=== PATIENT | female | born 1955 | race Asian ===

== ENCOUNTER 2023-08-21 10:59 | Emergency (ER) | payer MEDICAID, SELFPAY ==
--- NOTE | ~2023-08-21 | XR_ITS ---
EXAMINATION: XR CHEST CLINICAL INFORMATION: Reason for Exam cough, fevers, 3 weeks COMPARISON: None TECHNIQUE: 2 views of the chest FINDINGS: Lines and tubes: None. Few patchy left basilar airspace opacities suggesting infection or aspiration, recommend follow-up radiographs to ensure resolution. Trace left pleural effusion. No pneumothorax. Normal cardiomediastinal silhouette. XR/XR chest 2V IMPRESSION: 1. Few patchy left basilar airspace opacities suggesting infection or aspiration, recommend follow-up radiographs to ensure resolution. 2. Trace left pleural effusion.
[2023-08-21 11:06] VITALS: BP 131/74; PULSE 81; RESP 16; TEMP 36.6; O2SAT 98; BMI 23.5
--- NOTE | 2023-08-21 11:34 | ED.URI ---
HPI - URI/Sore Throat General Chief Complaint: Upper Respiratory Symptoms Stated Complaint: sore throat cough nasal Time Seen by Provider: 08/21/23 11:11 Source: patient Mode of arrival: ambulatory Limitations: no limitations History of Present Illness HPI Narrative: patient is a 68-year-old female who presents to the emergency department for evaluation of productive cough with white mucus, and chills onset 2 weeks ago 08/07/2023. She does admit to going to a meeting with a lot of people surrounding her 2 days prior to her symptom onset. She denies any overt known sick contacts. She denies fevers, headache, neck pain, neck stiffness, chest pain, shortness of breath, nausea, vomiting, abdominal pain, numbness or tingling of her extremities. She denies any recent travel. Denies any pertinent past medical history. She has not taking any medications on a daily basis. Related Data Previous Rx's ?Medication ?Instructions ?Recorded amoxicillin 500 mg tablet 1,000 mg (2 x 500 mg) PO TID 5 08/21/23 days #30 tabs Allergies Allergy/AdvReac Type Severity Reaction Status Date / Time No Known Allergies Allergy Verified 08/21/23 11:07 Review of Systems Review of Systems: Yes all other systems are reviewed and are negative [facility] Past Medical History Attestation statement: The following information was validated with the patient. Source: old records reviewed Social History Social History Advance Directives: No Advance Directives Information Provided: No Do you have a plan to hurt others: No Plan Physical Exam Vital Signs: Vital Signs: Last Vital Signs Temp 97.8 F 08/21/23 11:06 Pulse 81 08/21/23 11:06 Resp 16 08/21/23 11:06 BP 131/74 08/21/23 11:06 Pulse Ox 98 08/21/23 11:06 O2 Del Method Room Air 08/21/23 11:06 BMI result Body Mass Index 23.5 Appearance: Alert.?Oriented to person, place and time. No acute distress.?Normal affect. Eyes: Pupils equal, round and reactive to light.? ENT: Pharynx normal.?? Neck: Normal inspection.? Neck supple.?? CVS: Heart sounds normal. Normal heart rate and rhythm.? Pulses normal.?? Respiratory: No respiratory distress.? Lung sounds clear Aside from loud pleural friction rub in the left lower lobe upon auscultation posteriorly Abdomen: Soft and non-tender. Normoactive bowel sounds. Skin: Skin warm and dry.? Normal skin color.? Extremities: No lower extremity edema.? No calf ttp? Neuro: Moves all extremities spontaneously. Sensation intact bilaterally. Ambulates with normal steady gait. Medical Decision Making Medical Decision Making [facility] Narrative: patient is a 68-year-old female with no reported past medical history presenting to emergency department for evaluation of productive cough congestion and chills for 2 weeks As per HPI. Overall she is well-appearing, nontoxic, afebrile. She is Nontoxic, well-appearing, without tachycardia tachypnea or hypoxia. She is speaking clear full sentences. Has no risk factors or clinical signs and symptoms of DVT /PE, Wells score is negative, less likely pulmonary embolism. No associated chest pain or atypical symptoms to suggest ACS. Viral testing obtained And is negative, CXR with evidence of left lower lobe pneumonia, will treat with course of antibiotics. And recommend outpatient follow-up with her primary care provider to assure resolution. Differential Diagnosis Differential Diagnoses: The differential diagnosis associated with the presentation includes ( see narrative above) Admission/Observation Consideration of admission/observation: Escalation of care including admission/observation considered ( see narrative above) Lab Data [facility] Lab Attestation statement: I reviewed the patient's lab results. ( see narrative above) Labs: Lab Results 08/21/23 Range/Units 11:12 Influenza Type A (PCR) NEGATIVE (Negative) Influenza Type B (PCR) NEGATIVE (Negative) RSV RNA Qual (PCR) NEGATIVE (Negative) SARS-CoV-2 RNA (RT-PCR) NEGATIVE (Negative) S. pyogenes GrpA KARTHIKEYAN Negative (Negative) Independent Interpretation I performed an independent interpretation of an: Plain X-Ray ( Left lower lobe pneumonia) Radiology Impression Discussion of test interpretation with radiology: I have reviewed the radiologist's reading. Radiologist Impression: XR/XR chest 2V IMPRESSION: 1. Few patchy left basilar airspace opacities suggesting infection or aspiration, recommend follow-up radiographs to ensure resolution. 2. Trace left pleural effusion. Prescription Management I considered prescription management with: Antibiotic Discharge Plan Discharge Clinical Impression: Community acquired pneumonia Patient Disposition: Home, Self-Care Instructions: Community Acquired Pneumonia (ED) Additional Instructions: your x-ray today shows pneumonia in your left lower lung. A prescription for antibiotic was sent to your pharmacy; amoxicillin which she will take 3 times a day for 5 days. Please contact your primary care provider's office first thing Wednesday morning to arrange for a follow-up visit. They may consider repeating your chest x-ray to ensure that the pneumonia has resolved once you are done with treatment. Please feel free to return back to emergency department any new or worsening symptoms or concerns. Prescriptions: New amoxicillin 500 mg tablet 1,000 mg PO TID 5 Days Qty: 30 0RF Referrals: Physician,None [Primary Care Provider] - Print Language: Prydeinig
[2023-08-21 11:41] LABS: IDNOW Serial# 08D9AD1C; Strep A Nucleic Acid Negative (Negative)
[2023-08-21 11:54] LABS: Influenza A PCR NEGATIVE (Negative); Influenza B PCR NEGATIVE (Negative); Resp Syncy Virus RNA Qual PCR NEGATIVE (Negative); SARS COV2 PCR INHOUSE NEGATIVE (Negative)
[2023-08-21 14:08] VITALS: BP 151/75; PULSE 72; RESP 16; TEMP 37.4; O2SAT 98
== END 2023-08-21 14:09 | disposition home or self-care (01) ==
PROVIDERS: Emergency Provider Student in an Organized Health Care Education/Training Program
DX: J18.9 Pneumonia, unspecified organism (principal)
CPT/HCPCS: 0241U; 71046; 87651; 99282; 99283

== ENCOUNTER 2023-08-29 13:52 | Emergency (ER) | payer MEDICAID, SELFPAY ==
--- NOTE | ~2023-08-29 | XR_ITS ---
EXAMINATION: XR CHEST CLINICAL INFORMATION: Cough. Recent pneumonia. COMPARISON: Previous chest x-ray 08/21/2023 TECHNIQUE: 2 views of the chest were obtained. FINDINGS: The cardiac and mediastinal contours are stable. The lungs are well-inflated. There is still a small infiltrate seen at the left lung base probably representing infiltrates similar to previous exam. There is Increasing subsegmental atelectasis at the right lung base. There is biapical pleural thickening. No pleural effusion or pneumothorax. Bony structures are unremarkable. XR/XR chest 2V IMPRESSION: Small left lower lobe infiltrate similar to previous exam. Increasing subsegmental atelectasis at the right lung base.
[2023-08-29 14:09] VITALS: BP 124/49; PULSE 87; RESP 14; TEMP 36.1; O2SAT 100; BMI 17.6
--- NOTE | 2023-08-29 14:09 | ED.GENADULT ---
HPI - General Adult General Chief complaint: General Medical Stated complaint: Cough Time Seen by Provider: 08/29/23 14:16 Source: patient, RN notes reviewed and old records reviewed Mode of arrival: ambulatory Limitations: no limitations History of Present Illness HPI narrative: 68 year old female with no significant pmhx presents to the ED today for evaluation of cough x14 days. She was [place] [facility] [place] and placed on a coarse of amoxicillin for diagnosis of left lobe pneumonia. She was told to follow up for repeat chest xray however does not have a PCP at present. She presents today with concerns of continued cough, requesting repeat chest xray to ensure improvement of pneumonia. She has not been taking anything for her cough at home. Admits cough is worse at night when she goes to lie down in bed. Denies recent sick contacts. Denies fevers, chills, sore throat, sputum production, sob, dyspnea, hemopytsis, calf pain, LE swelling. Denies current or previous hx of smoking tobacco. Denies recent travel or long car rides. Related Data Previous Rx's ?Medication ?Instructions ?Recorded amoxicillin 500 mg tablet 1,000 mg (2 x 500 mg) PO TID 5 08/21/23 days #30 tabs azithromycin 250 mg tablet See Rx Instructions PO .COMPLEX #6 08/29/23 (Zithromax Z-Nabor) tabs benzonatate 100 mg capsule 100 mg PO BID PRN cough #20 caps 08/29/23 prednisone 20 mg tablet 40 mg (2 x 20 mg) PO DAILY 5 days 08/29/23 #10 tabs Allergies Allergy/AdvReac Type Severity Reaction Status Date / Time No Known Allergies Allergy Verified 08/29/23 14:11 Review of Systems Review of Systems: Constitutional: No fever, chills, fatigue, night sweats, weight changes ENT/Mouth: No ear pain, hearing loss, nasal congestion, sinus pain, rhinorrhea, sore throat Eyes: No eye pain, swelling, redness, vision changes, discharge Cardio: No chest pain, palpitations, CUELLO, orthopnea, peripheral edema Pulm: No SOB, sputum, wheezing, dyspnea, hemoptysis, +cough GI: No nausea, vomiting, hematemesis, abdominal pain, diarrhea, constipation, hematochezia, melena : No irregular bleeding, dysuria, frequency, urgency, hesitancy, hematuria, flank pain, urinary flow changes, urinary incontinence or retention MSK: No back pain, neck pain, joint pain, myalgias Skin: No lesions, rashes Neuro: No weakness, numbness, paresthesias, LOC, dizziness, headache Psych: No anxiety/panic, depression, SI/HI, AH/VH All other systems reviewed and are negative. [facility] Past Medical History Attestation statement: The following information was validated with the patient. Source: old records reviewed and nursing notes reviewed Social History Social History Advance Directives: No Advance Directives Information Provided: Yes Do you have a plan to hurt others: No Plan Physical Exam ED Vital Signs: Vital Signs - 24 hr 08/29/23 16:59 08/29/23 18:07 08/29/23 19:56 Temperature 98.7 F 97.0 F 98.2 F Pulse Rate 74 80 80 Respiratory Rate 16 16 16 Blood Pressure 96/64 121/74 121/74 Pulse Oximetry 99 98 98 Oxygen Delivery Method Room Air Room Air Room Air BMI result Body Mass Index 17.6 Vital signs stable, afebrile. Const General: cooperative, healthy appearing, comfortable and no acute distress Orientation/consciousness: patient oriented x3 Limitations: no limitations [facility] Head: Yes normal to inspection, Yes No palpable skull fracture present, Yes normocephalic and Yes atraumatic Face and sinus: Yes normal facial exam and Yes sinuses nontender Mouth: Normal oral and palatal mucosa present Throat: Yes posterior oropharynx normal Eyes General: appearance normal, both eyes and all related structures Conjunctivae: conjunctivae normal Sclerae: sclerae normal Pupils: Equal, round and reactive pupils present Neck Neck: Yes normal visual inspection, Yes full ROM, Yes no lymphadenopathy, Yes no meningeal signs and Yes no JVD Resp Effort & Inspection: normal respiratory effort and able to speak in complete sentences Auscultation: clear to auscultation bilaterally Cardio Other: + no peripheral edema Jugular venous distension: no JVD Rate: regular rate Rhythm: regular rhythm Skin General skin exam: no rashes or lesions noted Neuro General: patient oriented x3, gait normal and no meningeal signs Cranial nerves: Yes Equal, round and reactive pupils present Extrem General: Yes no pedal edema and Yes no calf tenderness Course Course Course Narrative: This is an RME performed by Torin Ahumada CNP: Additional HPI, ROS, PE not included below will be deferred to primary provider. Patient is a 68-year-old female who presents emergency department for evaluation after recently being treated for pneumonia. She reports some improvement in her cough but is still present, she would like to have repeat x-ray to be sure that things are improving. Patient was made aware that there may still be findings on her chest x-ray at this time, despite improving condition, would typically not recommend follow-up imaging within 1 week. She feels very strongly for having repeat x-ray obtained, she does not have a primary care provider who she can follow-up with. Plan: XR Reevaluation(s) Reevaluation #1: 4234-- repeat chest xray showing unchanged lower left lobe infiltrate. given essentially unchanged findings and continued symptoms, will send patient zpak, prednisone, and tessalon perles for symptoms. additionally, given increasing atelectasis at right lung base, will provide patient with incentive spirometer. discussed all results along with disposition with patient. as she does not currently have a pcp, referral will be provided. i advised her to call tomorrow morning to establish care. Patient has remained stable throughout ED visit today. Discussed worrisome signs and symptoms and when to return to the ED. All questions answered at this time. Patient is agreeable with disposition and stable for discharge. Medical Decision Making Medical Decision Making MDM Narrative: 68 year old female with no significant pmhx presents to the ED today for evaluation of cough x14 days. vital signs stable. she is afebrile. she is nontoxic appearing and in nad. on exam, lungs are cta b/l. no crackles or rhonchi. rrr. no rashes. no jvd. no peripheral edema. no calf tenderness. Differential diagnosis includes continued pneumonia, bronchitis, viral syndrome. Unlikely PE, pleural effusion, acs, arrhythmia, chf. Repeat CXR ordered prior to my assumption of care. Plan for review and re-evaluation. Differential Diagnosis Differential Diagnoses: The differential diagnosis associated with the presentation includes as above. Admission/Observation not indicated. Independent Interpretation I performed an independent interpretation of an: Plain X-Ray Interpretation: CXR 08/29/23 showing small infiltrate to left lower lobe, agree with radiologist's interpretation. CXR 08/21/23 showing patchy opacities to left lower lobe, agree with radiologist's interpretation. Radiology Impression Discussion of test interpretation with radiology: I have reviewed the radiologist's reading. Radiologist Impression: EXAMINATION: XR CHEST CLINICAL INFORMATION: Cough. Recent pneumonia. COMPARISON: Previous chest x-ray 08/21/2023 TECHNIQUE: 2 views of the chest were obtained. FINDINGS: The cardiac and mediastinal contours are stable. The lungs are well-inflated. There is still a small infiltrate seen at the left lung base probably representing infiltrates similar to previous exam. There is Increasing subsegmental atelectasis at the right lung base. There is biapical pleural thickening. No pleural effusion or pneumothorax. Bony structures are unremarkable. XR/XR chest 2V IMPRESSION: Small left lower lobe infiltrate similar to previous exam. Increasing subsegmental atelectasis at the right lung base. EXAMINATION: XR CHEST CLINICAL INFORMATION: Reason for Exam cough, fevers, 3 weeks COMPARISON: None TECHNIQUE: 2 views of the chest FINDINGS: Lines and tubes: None. Few patchy left basilar airspace opacities suggesting infection or aspiration, recommend follow-up radiographs to ensure resolution. Trace left pleural effusion. No pneumothorax. Normal cardiomediastinal silhouette. XR/XR chest 2V IMPRESSION: 1. Few patchy left basilar airspace opacities suggesting infection or aspiration, recommend follow-up radiographs to ensure resolution. 2. Trace left pleural effusion. External Record Review External record reviewed: Inpatient record Tests considered The following testing was considered but not selected: I considered obtaining basic labs however lungs are CTA, no peripheral edema, no indicators of systemic infection or CHF, not warranted at this time. Prescription Management I considered prescription management with: Antibiotic (azithromycin) and Other (tessalon perles, prednisone) Social Determinants Patient?s care significantly limited by Social Determinants of Health including: Other Social Determinant of Health Critical Care Time Critical Care Time Critical Care Time: No Discharge Plan Discharge Clinical Impression: Community acquired pneumonia, Atelectasis Patient Disposition: Home, Self-Care Instructions: How to Use an Incentive Spirometer (ED), Community Acquired Pneumonia (ED), Pneumonia (ED), Atelectasis (ED) Additional Instructions: Your chest x-ray today read demonstrates a small area of pneumonia within your left lung. As discussed, it also shows atelectasis at the right lung base. You have been provided with incentive spirometer and educated on how to use this. Prednisone has been sent to your pharmacy for you to take over the next 5 days. Zpak is an antibiotic that you will take over the next 5 days as precribed. Tessalon perles have been sent to your pharmacy for cough. Please follow up with PCP in 2 weeks for repeat chest xray. You have been provided with a referral to a new PCP. You may call them to establish care. They will not call you. Return with new or worsening symptoms. In the case of an emergency call 911. Prescriptions: New azithromycin [Zithromax Z-Nabor] 250 mg tablet See Rx Instructions .ROUTE .COMPLEX Qty: 6 0RF Rx Instructions: For 250 mg dose pack: take 500 mg today (day 1), then 250 mg for 4 days (days 2-5) prednisone 20 mg tablet 40 mg PO DAILY 5 Days Qty: 10 0RF benzonatate 100 mg capsule 100 mg PO BID PRN (Reason: cough) Qty: 20 0RF No Action amoxicillin 500 mg tablet 1,000 mg PO TID 5 Days Qty: 30 0RF Referrals: [facility] [place] Family Medicine [Provider Group] [facility] [place] Primary [facility] [Provider Group] [facility] [place] Primary [facility] [Provider Group] Interventions: ED Discharge Assessment Last Done: 08/29/23 19:56 Discharge Date/Time: 08/29/23 19:57 Print Language: Argentine
[2023-08-29 16:59] VITALS: BP 96/64; PULSE 74; RESP 16; TEMP 37.1; O2SAT 99
[2023-08-29 18:07] VITALS: BP 121/74; PULSE 80; RESP 16; TEMP 36.1; O2SAT 98
[2023-08-29 19:56] VITALS: BP 121/74; PULSE 80; RESP 16; TEMP 36.8; O2SAT 98
== END 2023-08-29 19:57 | disposition home or self-care (01) ==
PROVIDERS: Emergency Provider Emergency Medicine Emergency Medical Services
DX: J18.9 Pneumonia, unspecified organism (principal); J98.11 Atelectasis
CPT/HCPCS: 71046; 94010; 99283

== ENCOUNTER 2023-09-11 12:51 | Emergency (ER) | payer MEDICAID, SELFPAY ==
--- NOTE | ~2023-09-11 | XR_ITS ---
EXAMINATION: XR CHEST CLINICAL INFORMATION: Chest pain. COMPARISON: Most recent chest radiograph dated 08/29/2023. TECHNIQUE: 2 views of the chest were obtained. FINDINGS: Linear scarring within the left lung base, unchanged. No new focal airspace consolidation. No pleural effusion or pneumothorax. Stable cardiomediastinal silhouette. XR/XR chest 2V IMPRESSION: No acute cardiopulmonary findings.
[2023-09-11 13:03] VITALS: BP 102/68; PULSE 81; RESP 19; TEMP 36.6; O2SAT 99; BMI 20.3
--- NOTE | 2023-09-11 13:04 | ED.URI ---
HPI - URI/Sore Throat General Chief Complaint: General Medical Stated Complaint: Follow up pneumonia Time Seen by Provider: 09/11/23 17:13 Source: patient Mode of arrival: ambulatory Limitations: no limitations History of Present Illness HPI Narrative: 68 yo female here after episode of chest pain yesterday which lasted several minutes then went away. Patient reports she was yelling at a co-worker when she started developed some sharp pain which lasted several minutes and then self-resolved. There was no associated diaphoresis, shortness of breath, vomiting. No chest pain since. Of note, patient was recently treated for community-acquired pneumonia and completed her course of antibiotics. She reports she had been feeling well until this episode of chest pain yesterday. She denies any leg swelling or leg pain. No recent travel. No exertional symptoms Related Data Previous Rx's ?Medication ?Instructions ?Recorded amoxicillin 500 mg tablet 1,000 mg (2 x 500 mg) PO TID 5 08/21/23 days #30 tabs azithromycin 250 mg tablet See Rx Instructions PO .COMPLEX #6 08/29/23 (Zithromax Z-Nabor) tabs benzonatate 100 mg capsule 100 mg PO BID PRN cough #20 caps 08/29/23 prednisone 20 mg tablet 40 mg (2 x 20 mg) PO DAILY 5 days 08/29/23 #10 tabs Allergies Allergy/AdvReac Type Severity Reaction Status Date / Time No Known Allergies Allergy Verified 09/11/23 13:07 Review of Systems Review of Systems: Yes all other systems are reviewed and are negative Constitutional: Constitutional: Reports no additional constitutional complaints, Denies body ache(s), Denies chills, Denies fever(s), Denies headache(s) and Denies weakness Eyes: Eyes: Reports no additional eye complaints and Denies change in vision ENT: Reports system reviewed and no additional complaints, except as documented, Denies dizziness, Denies headache(s), Denies nasal congestion, Denies nasal discharge and Denies neck pain Cardiovascular: Cardiovascular: Reports no additional cardiovascular complaints, Reports chest pain, Denies leg edema and Denies dyspnea Respiratory: Respiratory: Reports no additional respiratory complaints, Denies cough and Denies dyspnea Gastrointestinal: Gastrointestinal: Reports no additional gastrointestinal complaints, Denies abdominal pain, Denies diarrhea, Denies nausea and Denies vomiting Genitourinary: Genitourinary: Reports no additional female genitourinary complaints and Denies urinary incontinence Musculoskeletal: Musculoskeletal: Reports no additional musculoskeletal complaints, Denies back pain, Denies arthralgias, Denies joint swelling, Denies neck pain, Denies numbness and Denies tingling Integumentary/Breasts: Skin/Breast: Reports system reviewed and no additional complaints, except as docu and Denies rash Neurologic: Reports system reviewed and no additional complaints, except as documented, Denies Abnormal speech present, Denies dizziness, Denies headache(s), Denies numbness, Denies tingling and Denies weakness [facility] Past Medical History Attestation statement: The following information was validated with the patient. Source: old records reviewed and nursing notes reviewed Social History Social History Advance Directives: No Advance Directives Information Provided: No Physical Exam Vital Signs: Vital Signs: Last Vital Signs Temp 98.9 F 09/11/23 17:13 Pulse 86 09/11/23 17:13 Resp 18 09/11/23 17:13 BP 110/70 09/11/23 17:13 Pulse Ox 100 09/11/23 17:13 O2 Del Method Room Air 09/11/23 17:13 BMI result Body Mass Index 20.3 Const: General: cooperative, healthy appearing, comfortable and no acute distress Orientation/consciousness: patient oriented x3 Limitations: no limitations HEENT: Head: Yes normal to inspection Ears: hearing grossly normal bilaterally General nose exam: Normal external nose present Face and sinus: Yes normal facial exam Mouth: Normal oral and palatal mucosa present Throat: Yes posterior oropharynx normal Eyes: General: appearance normal, both eyes and all related structures Pupils: Equal, round and reactive pupils present Neck: Neck: Yes normal visual inspection Chest: Chest palpation & inspection: normal inspection of the chest Resp: Effort & Inspection: normal respiratory effort Auscultation: clear to auscultation bilaterally Cardio: Rate: regular rate Rhythm: regular rhythm Peripheral pulses: Peripheral pulses 2+ throughout GI: Inspection: Yes normal to inspection Palpation (GI): Soft to palpation and nontender Auscultation: normal bowel sounds Back/Spine/Pelvis: Thoracic/Lumbar Spine: thoracic and lumbar spine normal to inspection Skin: General skin exam: no rashes or lesions noted Neuro: General: patient oriented x3, no focal motor deficits and normal sensation to monofilament Cranial nerves: Yes Equal, round and reactive pupils present Cognition (Neuro): normal cognition Speech: No Abnormal speech present Gait exam (Neuro): Normal gait present Motor exam (neuro): 5/5 motor strength present throughout Extrem: General: Yes normal to inspection, Yes no pedal edema and Yes no calf tenderness Course Course Course Narrative: This is a rapid medical exam. Deferred additional HPI, ROS, PE to primary provider. 68 yo female diagnosed with pneumonia in july, took entire course of antibiotics, had been feeling improved but had episode of sharp chest pain yesterday which is now resolved. Will obtain labs, EKG, CXR LETTY -Gama GOLDBERG Reevaluation(s) Reevaluation #1: Labs unremarkable. EKG is nonischemic. Chest x-ray shows no acute finding. Patient reports no chest pain currently and has not had any chest pain since his episode yesterday. Recommend she follow up outpatient with primary care doctor. Reviewed worrisome signs and symptoms of when to return to the emergency room. Comfortable plan for discharge home. Medical Decision Making Medical Decision Making [facility] Narrative: 68 yo female here after episode of chest pain yesterday which lasted several minutes then went away. Patient reports she was yelling at a co-worker when she started developed some sharp pain which lasted several minutes and then self-resolved. There was no associated diaphoresis, shortness of breath, vomiting. No chest pain since. Of note, patient was recently treated for community-acquired pneumonia and completed her course of antibiotics. She reports she had been feeling well until this episode of chest pain yesterday. She denies any leg swelling or leg pain. No recent travel. No exertional symptoms Vitals are stable. Exam is benign. Will send testing including labs, EKG and chest x-ray Differential Diagnosis Differential Diagnoses: The differential diagnosis associated with the presentation includes Less likely ACS with atypical hpi with flat troponin and nonischemic EKG Less likely PE with no hypoxia, no tachypnea, no tachycardia, no clinical findings concerning for DVT, no reports of recent travel or surgical history. Less likely AAA with gradual onset of symptoms Admission/Observation Consideration of admission/observation: Escalation of care including admission/observation considered see discussion above Lab Data [facility] Lab Attestation statement: I reviewed the patient's lab results. 09/11/23 13:20 09/11/23 13:21 Labs: Lab Results 09/11/23 09/11/23 Range/Units 13:20 13:21 WBC 4.2 L (4.8-10.8) X10*3/uL RBC 4.20 (4.20-5.50) X10*6/uL Hgb 12.3 (12.0-16.0) g/dl Hct 37.8 (37.0-47.0) % MCV 90.0 (80.0-98.0) fL MCH 29.3 (27.0-33.0) pg MCHC 32.5 (31.0-35.0) g/dl RDW 13.2 (11.0-16.0) % Plt Count 230 (160-400) X10*3/uL MPV 9.3 L (9.4-12.3) fL Immature Gran % (Auto) 0.2 (0.0-0.4) % Neut % (Auto) 48.0 (45-73) % Lymph % (Auto) 35.8 (20-40) % [place] % (Auto) 13.6 H (2-11) % Eos % (Auto) 1.7 (0-4) % Baso % (Auto) 0.7 (0-2) % Lymph # (Auto) 1.5 (1.2-4.9) X10*3/uL [place] # (Auto) 0.6 (0.1-1.2) X10*3/uL Eos # (Auto) 0.1 (0.0-0.4) X10*3/uL Baso # (Auto) 0.0 (0.0-0.2) X10*3/uL Abs Immat Gran (auto) 0.01 (0.00-0.03) X10*3/uL Absolute Neuts (auto) 2.0 (2.0-8.3) x10*3/uL Absolute Nucleated RBC 0.000 (0.0-0.012) X10*3/uL Nucleated RBC % (auto) 0.0 (0.0-0.2) /100WBC Sodium 142 (135-145) mmol/L Potassium 4.5 (3.3-5.1) mmol/L Chloride 103 (96-108) mmol/L Carbon Dioxide 29 (22-29) mmol/L Anion Gap 15 (12-20) BUN 16 (9-16) mg/dL Creatinine 0.81 (0.5-1.4) mg/dL Estim Creat Clear Calc 42.8 Estimated GFR > 60 Random Glucose 73 (60-115) mg/dL Calcium 9.4 (8.4-10.2) mg/dL Total Bilirubin 0.3 (0.0-1.0) mg/dL Direct Bilirubin 0.1 (0.0-0.5) mg/dL AST 20 (5-31) U/L ALT 15 (0-31) U/L Alkaline Phosphatase 112 (39-117) U/L Troponin I High Sens < 2.7 (<3.5-17.0) ng/L Total Protein 7.4 (6.5-8.0) g/dL Albumin 4.0 (3.5-5.0) g/dL Independent Interpretation I performed an independent interpretation of an: EKG and Plain X-Ray Interpretation: I independently viewed the x-ray and agree with the radiology report Independently reviewed the EKG which shows normal sinus rhythm with a rate of 79, normal RI, normal QRS, normal QT Radiology Impression Discussion of test interpretation with radiology: I have reviewed the radiologist's reading. Radiologist Impression: [place] [id number] XRay Report Signed Patient: Joana Merritt MR#: [id number] : 1955 Acct:[id number] Age/Sex: 68 / F ADM Date: 09/11/23 Loc: .ED Attending Dr: Ordering Physician: Margarita Cristina NP Date of Service: 09/11/23 Procedure(s): XR chest 2V Accession Number(s): [id number] cc: Margaret Devine; Margarita Cristina NP~ EXAMINATION: XR CHEST CLINICAL INFORMATION: Chest pain. COMPARISON: Most recent chest radiograph dated 08/29/2023. TECHNIQUE: 2 views of the chest were obtained. FINDINGS: Linear scarring within the left lung base, unchanged. No new focal airspace consolidation. No pleural effusion or pneumothorax. Stable cardiomediastinal silhouette. XR/XR chest 2V IMPRESSION: No acute cardiopulmonary findings. Discharge Plan Discharge Clinical Impression: Chest pain Patient Disposition: Home, Self-Care Instructions: Chest Pain (ED) Additional Instructions: Your lab work, EKG and chest x-ray all look normal Please return for worsening symptoms Prescriptions: No Action amoxicillin 500 mg tablet 1,000 mg PO TID 5 Days Qty: 30 0RF azithromycin [Zithromax Z-Nabor] 250 mg tablet See Rx Instructions .ROUTE .COMPLEX Qty: 6 0RF Rx Instructions: For 250 mg dose pack: take 500 mg today (day 1), then 250 mg for 4 days (days 2-5) prednisone 20 mg tablet 40 mg PO DAILY 5 Days Qty: 10 0RF benzonatate 100 mg capsule 100 mg PO BID PRN (Reason: cough) Qty: 20 0RF Print Language: Demetrio
[2023-09-11 13:25] LABS: MANUAL DIFF FLAG NO
[2023-09-11 13:26] LABS: Basophils Percent Auto 0.7 % (0-2); Eosinophils Absolute Auto 0.1 X10*3/uL (0.0-0.4); Eosinophils Percent Auto 1.7 % (0-4); Hematocrit 37.8 % (37.0-47.0); Hemoglobin 12.3 g/dl (12.0-16.0); Imm Gran Abs Auto 0.01 X10*3/uL (0.00-0.03); Imm Gran Pct Auto 0.2 % (0.0-0.4); Lymphocytes Absolute Auto 1.5 X10*3/uL (1.2-4.9); Lymphocytes Percent Auto 35.8 % (20-40); Mean Corpuscular HGB Conc 32.5 g/dl (31.0-35.0); Mean Corpuscular Hemoglobin 29.3 pg (27.0-33.0); Mean Platelet Volume 9.3 fL (9.4-12.3); Monocytes Absolute Auto 0.6 X10*3/uL (0.1-1.2); Monocytes Percent Auto 13.6 % (2-11); Platelet Count 230 X10*3/uL (160-400); Red Cell Distribution Width 13.2 % (11.0-16.0); White Blood Count 4.2 X10*3/uL (4.8-10.8)
[2023-09-11 13:45] LABS: Alanine Aminotransferase 15 U/L (0-31); Alkaline Phosphatase 112 U/L (39-117); Anion Gap 15 (12-20); Aspartate Amino Transferase 20 U/L (5-31); Bilirubin Direct 0.1 mg/dL (0.0-0.5); Bilirubin Total 0.3 mg/dL (0.0-1.0); Blood Urea Nitrogen 16 mg/dL (9-16); Calcium 9.4 mg/dL (8.4-10.2); Carbon Dioxide 29 mmol/L (22-29); Chloride 103 mmol/L (96-108); Creatinine Clr Calc Pharmacy 42.8; Estimated Glomerular Filt Rate > 60; Glucose Random 73 mg/dL (60-115); Potassium 4.5 mmol/L (3.3-5.1); Sodium 142 mmol/L (135-145); Total Protein 7.4 g/dL (6.5-8.0)
[2023-09-11 13:53] LABS: Troponin-I High Sensitivity < 2.7 ng/L (<3.5-17.0)
[2023-09-11 17:13] VITALS: BP 110/70; PULSE 86; RESP 18; TEMP 37.2; O2SAT 100
[2023-09-11 17:19] VITALS: BP 110/70; PULSE 86; RESP 18; TEMP 37.2; O2SAT 100
== END 2023-09-11 17:23 | disposition home or self-care (01) ==
PROVIDERS: Nurse Practitioner Family; Emergency Provider Internal Medicine; PCP Physician Assistant Medical
DX: R07.9 Chest pain, unspecified (principal)
CPT/HCPCS: 36415; 71046; 80048; 80076; 84484; 85025; 99283

== ENCOUNTER 2024-11-21 12:09 | Outpatient (AMB) | payer MEDICAID, SELFPAY ==
--- NOTE | 2024-11-21 12:14 | A.OFFPC_ITS ---
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 Accompanied by: Self / Same As Patient Allergies No Known Allergies Allergy (Verified 11/21/24 12:58) Medication List - Last Reconciled 11/21/24 by ROSIE Escoto No Known Home Meds Tobacco use date assessed: 11/21/24 Fall risk assessment: No Falls in past year Last assessed Fall Risk: 11/21/24 Dental Screening Did you have a dental visit in the last 12 months?: Yes Did you have a dental problem in the last 6 months where you did not have access to dental care?: No Was dental information given to patient?: Patient has dentist HPI STUDENT SUCCESS ADVISOR-PE HPI Details History of Present Illness The patient is a 69-year-old female presenting for a wellness visit and preventative care. She is originally from [facility] and communicates effectively in [place]. She denies experiencing any chest pain, dyspnea, abdominal pain, hematochezia, constipation, diarrhea, or any suicidal or homicidal ideation. During the examination, cerumen was noted to be blocking the right tympanic membrane. The patient was advised to use Debrox to address the cerumen impaction. The patient has never undergone a colonoscopy and expressed interest in non- invasive screening options. A Cologuard test was ordered for colon cancer screening. Additional preventative measures include ordering a bone density test and a mammogram. Vitamin D levels will also be assessed as part of her routine labs. The patient will receive a pneumonia vaccination during this visit. Health Maintenance - Colon cancer screening with Cologuard - Bone density screening - Mammogram - Pneumonia vaccination - Vitamin D level assessment Social History - Origin: [facility] - Language: Communicates effectively in British Review of Systems - Cardiovascular: Denies chest pain - Respiratory: Denies dyspnea - Gastrointestinal: Denies abdominal verna n, hematochezia, constipation, diarrhea - Psychiatric: Denies suicidal ideation, homicidal ideation Physical Exam General: Cooperative, healthy appearing, comfortable, no acute distress and well developed, very skinny stature Orientation: Patient oriented x3 Limitations: No limitations Head: Normal to inspection Ears: Cerumen blocking the right TM Nose: Normal external nose present Face and sinus: Normal facial exam Eyes: Appearance normal, both eyes and all related structures Neck: Normal visual inspection and Yes full ROM Respiratory: Normal respiratory effort and able to speak in complete sentences. Clear to auscultation bilaterally Cardiovascular: Regular rate and rhythm. Normal S1 and S2 GI: Normal to inspection. Soft to palpation and nontender : testicles without masses/lesions and no hernias appreciated Skin: No rashes or lesions noted Neuro: Patient oriented x3 Extremities: Normal to inspection Results Plan The patient will be advised to use Debrox to address the cerumen impaction in the right ear. A Cologuard test will be ordered for colon cancer screening, as the patient has never undergone a colonoscopy and prefers non-invasive options. Preventative measures include ordering a bone density test and a mammogram to assess her current health status. Vitamin D levels will be checked as part of her routine laboratory work. The patient will receive a pneumonia vaccination during this visit to enhance her immunization status. Discussion Notes I discussed with the patient the importance of addressing the cerumen impaction in her right ear and recommended the use of D-brox. We talked about the benefits of non-invasive colon cancer screening with Cologuard, and she agreed to proceed with this option. I also emphasized the need for regular health screenings, including bone density tests and mammograms, and she consented to these procedures. We agreed to check her Vitamin D levels as part of her routine labs. Finally, I explained the benefits of receiving the pneumonia vaccination, which she will receive today. Patient Instructions - Use D-brox as directed to clear earwax from the right ear. - Complete the Cologuard test for colon cancer screening. - Attend scheduled appointments for bone density and mammogram screenings. - Ensure Vitamin D levels are checked [facility] routine labs. - Receive the pneumonia vaccination yenifer ALVARADO Social History Housing: House Patient Tobacco Use Status: Never used Tobacco e-Cigarette/Vaping Use: Never Used service: No Current occupational status: employed Questionnaire PHQ-9 Over the last 2 weeks, how often have you been bothered by any of the following problems? 1. Little interest or pleasure in doing things: not at all 2. Feeling down, depressed, or hopeless: not at all 3. Trouble falling or staying asleep, or sleeping too much: not at all 4. Feeling tired or having little energy: not at all 5. Poor appetite or overeating: not at all 6. Feeling bad about yourself - or that you are a failure or have let yourself or your family down: not at all 7. Trouble concentrating on things, such as reading the newspaper or watching television: not at all 8. Moving or speaking so slowly that other people could have noticed. Or the opposite - being so fidgety or restless that you have been moving around a lot more than usual: not at all 9. Thoughts that you would be better off or of hurting yourself in some way: not at all Total score: 0 Depression Screening Interpretation: Negative Depression Screening Done: Yes 11609 - PHQ-9 Billing: Yes Source: Developed by Drs. Froy Campos, Pauline Santillan, Jesse Mcmanus and colleagues, with an educational esha from [employer]. Thrive Questionnaire Date Thrive assessed: 11/21/24 I am a: Patient What is your living situation today?: I have a steady place to live Within the past 12 months, did the food you bought not last and you didn't have the money to get more?: Sometimes True Within the past 12 months, did you worry whether your food would run out before you got money to buy more?: Sometimes True Do you have trouble paying for medicines?: Yes Do you have trouble getting transportation to medical appointments?: Yes Do you have trouble paying your heating and electricity bill?: No Do you have trouble taking care of your child, family member or friend?: No Do you have trouble with day-to-day activities such as bathing, preparing meals, shopping, managing finances, etc.?: No Are you currently unemployed and looking for a job?: No Are you interested in more education?: No Please select the resources that you would like help with: None Currently or been in a relationship where the following occur: No concerns reported THRIVE Score: 3 AUDIT C Alcohol Use Questionnaire (AUDIT-C) 1. How often do you have a drink containing alcohol?: Never 3. How often do you have six or more drinks on one occasion?: Never Total Score: 0 CHINA-7 AMB Questionnaire CHINA-7 Feeling nervous, anxious, or on edge: 0 = Not at all Not being able to stop or control worryin = Not at all Worrying too much about different things: 0 = Not at all Trouble relaxin = Not at all Being so restless that it is hard to sit still: 0 = Not at all Becoming easily annoyed or irritable: 0 = Not at all Feeling afraid as if something awful might happen: 0 = Not at all Total CHINA-7 score (0-4 normal; 5-9 mild; 10-14 moderate; 15-21 severe): 0 Source: Developed by Drs. Froy Campos, Pauline Santillan, Jesse Mcmanus and colleagues, with an educational esha from [employer]. CHINA-7 Assessment Billing CHINA-7 Assessment Tool: CHINA-7 Assessment 19317 Physical exam (Primary Care) Vital Signs: Last Vital Signs Temp 98.1 F 11/21/24 12:21 Pulse 70 11/21/24 12:21 Resp 16 11/21/24 12:21 BP 102/62 11/21/24 12:21 Pulse Ox 98 11/21/24 12:21 Oxygen Delivery Method Room Air 11/21/24 12:21 BMI result Body Mass Index 17.2 Tobacco/Smoking Status: Tobacco use Status Tobacco use date assessed 11/21/24 11/21/24 12:26 Patient Tobacco Use Status Never used Tobacco 11/21/24 12:26 e-Cigarette/Vaping Use Never Used 11/21/24 12:26 PHQ-9: PHQ-9 Score PHQ-9: Total score 0 11/21/24 12:26 Depression Screening Interpretation: Negative Thrive Assessment: Date of Thrive Assessment Date Thrive assessed 11/21/24 11/21/24 12:26 Currently or been in a relationship where the following occur: No concerns reported Coding Level of Care Code New Pt Prev Care >65yr (98720) Diagnoses Physical exam Z00.00 Post-menopausal Z78.0 Vitamin D deficiency E55.9 Additional Codes CHINA-7 Assessment Billing - CHINA-7 Assessment Tool: CHINA-7 Assessment 10670 ([id number]) PHQ-9 - 66530 - PHQ-9 Billing: Yes ([id number]) Assessment & Plan Assessment & Plan (1) Physical exam: Code(s): Z00.00 - Encounter for general adult medical examination without abnormal findings Category: Medical (2) Post-menopausal: Code(s): Z78.0 - Asymptomatic menopausal state Category: Medical (3) Vitamin D deficiency: Code(s): E55.9 - Vitamin D deficiency, unspecified Category: Medical Plan . Orders: Orders MM screening mammo BI Today Z12.31 - Encounter for screening mammogram for malignant neoplasm of breast Comprehensive [place]. Panel Fast Today Z00.00 - Encounter for general adult medical examination without abnormal findings TSH reflex Free T4 Today Z00.00 - Encounter for general adult medical examina tion without abnormal findings UA CC w/rflx Micro + Cult Today Z00.00 - Encounter for general adult medical examination without abnormal findings Lipid Panel Today Z00.00 - Encounter for general adult medical examination without abnormal findings XR DEXA axial skeleton Today Z78.0 - Asymptomatic menopausal state Complete Blood Count Auto Diff Today Z00.00 - Encounter for general adult medical examination without abnormal findings Vitamin D 25-OH Total Today E55.9 - Vitamin D deficiency, unspecified, Z78.0 - Asymptomatic menopausal state Referrals Cologuard Test Z12.11 - Encounter for screening for malignant neoplasm of colon, Z12.12 - Encounter for screening for malignant neoplasm of rectum Medications: Discontinued amoxicillin Discontinued Reason: Patient no longer taking 1,000 mg (2 x 500 mg) PO TID 5 days 30 tabs 0RF prednisone Discontinued Reason: Patient no longer taking 40 mg (2 x 20 mg) PO DAILY 5 days 10 tabs 0RF azithromycin (Zithromax Z-Nabor) Discontinued Reason: Patient no longer taking For 250 mg dose pack: take 500 mg today (day 1), then 250 mg for 4 days (days 2-5) 6 tabs 0RF benzonatate Discontinued Reason: Patient no longer taking 100 mg PO BID PRN 20 caps 0RF cough
[2024-11-21 12:21] VITALS: BP 102/62; PULSE 70; RESP 16; TEMP 36.7; O2SAT 98; BMI 17.2
== END 2024-11-21 13:29 | disposition home or self-care (01) ==
LOC: HO.HMCC 12:09
PROVIDERS: PCP Physician Assistant Medical; Visit Provider Nurse Practitioner Family
DX: Z00.00 Encounter for general adult medical examination without abnormal findings (principal); Z78.0 Asymptomatic menopausal state; E55.9 Vitamin D deficiency, unspecified

== ENCOUNTER → 2024-11-21 12:09 | Outpatient (BNVA) | payer MEDICAID, SELFPAY | PROVIDERS: PCP Physician Assistant Medical; Visit Provider Nurse Practitioner Family | DX: Z00.00 Encounter for general adult medical examination without abnormal findings (principal); E55.9 Vitamin D deficiency, unspecified; Z78.0 Asymptomatic menopausal state; Z13.31 Encounter for screening for depression; Z13.39 Encounter for screening examination for other mental health and behavioral disorders | CPT/HCPCS: 96127; 99387 ==

== ENCOUNTER 2025-01-31 08:30 | Outpatient (REF) | payer MEDICAID, SELFPAY ==
--- NOTE | ~2025-01-31 | MM_ITS ---
EXAMINATION: DXA BONE DENSITY AXIAL HISTORY: Z78.0 - Asymptomatic menopausal state TECHNIQUE: [employer] Dual energy absorptiometry (DEXA) of the lumbar spine, total left hip, and femoral neck was performed. COMPARISON: There are no prior studies for comparison. FINDINGS: The bone mineral density of the lumbar spine is 0.741 g/cm2, corresponding to a T-score of -3.7, and a Z-score of -1.3. This is indicative of osteoporosis. The bone mineral density of the left total hip is 0.527 g/cm2, corresponding to a T-score of -3.8, and a Z-score of -1.9. This is indicative of osteoporosis. The bone mineral density of the left femoral neck is 0.575 g/cm2, corresponding to a T-score of -3.3, and a Z-score of -1.2. This is indicative of osteoporosis. FRACTURE RISK: The FRAX index suggests a risk of major osteoporotic fracture of 11.7%, and of hip fracture 4.6%. MM/XR DEXA axial skeleton IMPRESSION: Based on bone mineral density, and according to World Health Organization (WHO) criteria, the diagnosis is consistent with osteoporosis. Statistically, 68% of repeat scans fall within 1 SD (+/- 0.010 g/cm2 for AP spine L1-L4) and 1 SD (+/- 0.012 g/cm2 for femur total) FRAX is a trademark of the [employer]'s [employer] [facility] [employer], a World Health Organization (WHO) Collaborating Center. Electronically signed by: Froy Jackson MD 01/31/2025 08:55 AM EDT
== END 2025-01-31 08:31 | disposition home or self-care (01) ==
LOC: HO.MAMMO 08:30
PROVIDERS: PCP Nurse Practitioner Family; Visit Provider Nurse Practitioner Family
DX: Z12.31 Encounter for screening mammogram for malignant neoplasm of breast (principal); Z13.820 Encounter for screening for osteoporosis; Z78.0 Asymptomatic menopausal state
CPT/HCPCS: 77063; 77067; 77080

== ENCOUNTER → 2025-01-31 09:15 | Outpatient (BNV) | payer MEDICAID, SELFPAY | PROVIDERS: PCP Nurse Practitioner Family; Visit Provider Radiology Diagnostic Radiology | DX: E28.39 Other primary ovarian failure (principal) | CPT/HCPCS: 77080 ==

== ENCOUNTER 2025-02-16 08:17 | Outpatient (REF) | payer MEDICAID, SELFPAY ==
[2025-02-16 10:11] LABS: MANUAL DIFF FLAG NO
[2025-02-16 10:18] LABS: Appearance Urine Clear; Glucose Urine UA Negative (Negative); PH 7.0 (5.0-9.0); Specific Gravity - Urine 1.015 (1.005-1.025)
[2025-02-16 10:20] LABS: Hematocrit 38.4 % (37.0-47.0); Hemoglobin 12.2 g/dl (12.0-16.0); Imm Gran Abs Auto 0.00 X10*3/uL (0.00-0.03); Imm Gran Pct Auto 0.0 % (0.0-0.4); Lymphocytes Absolute Auto 1.2 X10*3/uL (1.2-4.9); Mean Corpuscular HGB Conc 31.8 g/dl (31.0-35.0); Mean Corpuscular Hemoglobin 29.5 pg (27.0-33.0); Mean Corpuscular Volume 92.8 fL (80.0-98.0); NRBC Abs Auto 0.000 X10*3/uL (0.0-0.012); NRBC Pct Auto 0.0 /100WBC (0.0-0.2); Platelet Count 250 X10*3/uL (160-400); Red Blood Count 4.14 X10*6/uL (4.20-5.50); White Blood Count 3.2 X10*3/uL (4.8-10.8)
[2025-02-16 10:51] LABS: Alanine Aminotransferase 34 U/L (0-31); Albumin Level 4.5 g/dL (3.5-5.0); Alkaline Phosphatase 108 U/L (39-117); Anion Gap 11 (12-20); Aspartate Amino Transferase 36 U/L (5-31); Blood Urea Nitrogen 12 mg/dL (9-16); Calcium 9.5 mg/dL (8.4-10.2); Carbon Dioxide 30 mmol/L (22-29); Chloride 105 mmol/L (96-108); Cholesterol 203 mg/dL (<200); Estimated Glomerular Filt Rate > 60; HDL Cholesterol 91 mg/dL (>40); Potassium 4.2 mmol/L (3.3-5.1); Sodium 142 mmol/L (135-145); Total Protein 7.4 g/dL (6.5-8.0); Triglycerides 58 mg/dL (<150)
== END 2025-02-16 08:18 | disposition home or self-care (01) ==
LOC: HO.HMGCLDS 08:17
PROVIDERS: PCP Nurse Practitioner Family; Visit Provider Nurse Practitioner Family
DX: Z00.00 Encounter for general adult medical examination without abnormal findings (principal); E55.9 Vitamin D deficiency, unspecified; Z78.0 Asymptomatic menopausal state
CPT/HCPCS: 36415; 80053; 80061; 81003; 82306; 84443; 85025

== ENCOUNTER 2025-03-12 09:17 | Outpatient (REF) | payer MEDICAID, SELFPAY ==
--- NOTE | ~2025-03-12 | US_ITS ---
CLINICAL HISTORY: R74.8 - Abnormal levels of other serum enzymes US abdomen complete Comparison: None provided Findings: The visualized pancreas head is normal. The visualized aorta and inferior vena cava are normal caliber. The liver is small, right lobe length is 11.5 cm. Normal in echogenicity, no discrete lesion is visualized in the imaged liver. No intrahepatic bile duct dilatation. The common duct is 1-2 mm in diameter. The gallbladder is normal. Negative sonographic Gilbert sign. The main portal vein is patent with antegrade flow. The right kidney is normal, 9.1 cm in length. The left kidney is normal, 9.8 cm in length. The spleen is normal, 7.5 cm in length. No free fluid in the abdomen. Impression: Small liver, otherwise unremarkable. This document has been electronically signed by: Fawn Stern MD on 03/12/2025 16:45:32
== END 2025-03-12 09:18 | disposition home or self-care (01) ==
LOC: HO.HMGCX 09:17
PROVIDERS: PCP Nurse Practitioner Family; Visit Provider Nurse Practitioner Family
DX: R74.8 Abnormal levels of other serum enzymes (principal)
CPT/HCPCS: 76700

== ENCOUNTER → 2025-03-12 09:19 | Outpatient (BNV) | payer MEDICAID, SELFPAY | PROVIDERS: PCP Nurse Practitioner Family; Visit Provider Radiology Diagnostic Radiology | DX: R74.8 Abnormal levels of other serum enzymes (principal) | CPT/HCPCS: 76700 ==

== ENCOUNTER 2025-03-29 13:44 | Outpatient (AMB) | payer MEDICAID, SELFPAY ==
[2025-03-29 13:47] VITALS: BP 142/80; PULSE 98; O2SAT 98; BMI 19.0
--- NOTE | 2025-03-29 13:47 | MHC.OFFVIS ---
Vital Signs 03/29/25 13:47 Height 4 ft 10 in Weight 91 lb 0.815 oz BMI 19.0 BP 142/80 H Blood Pressure Location Lt brachial Position Sitting Pulse 98 Pulse Source Pulse Oximeter Pulse Oximetry (%) 98 Oxygen Delivery Method Room Air Intake Visit Reasons: Age-related osteoporosis without current patholog Intake Note: NEW Patient presents today to establish care for Osteoporosis: No acute complaints reported at this time. Date of last Bone Density Screenin01/31/2025 [employer] [employer] Required: No Accompanied by: Self / Same As Patient Allergies No Known Allergies Allergy (Verified 03/29/25 13:53) HPI Comments Details: Osteoporosis Initial Evaluation Reason for visit: Osteoporosis / Low bone density / Fragility fracture evaluation HPI 69 yo female with PMH prior history vitamin D deficiency, seen in the office for evaluation and management of osteoporosis. No previous knowledge of diagnosis of osteoporosis. LMP: 2o years ago History of fragility fractures no Symptoms: reports bone pain, mild height loss, no spinal deformity (kyphosis), no back pain, no wrist/hip pain after minor trauma Risk factors: family history: no low body weight: yes glucocorticoid use: no known smoking: no alcohol: no low Ca/Vit D: takes calcium supplement. No milk, no cheese. Eats leafy green veggies 3x/week. Overall insufficient amount of dietary calcium. Takes vitamin D. fall risk: no No dental implants or extractions scheduled or recent No history of kidney stones Meds (steroids, hormones, immunotherapy, antipsychotics, ppi, lithium): No Physical exam: General: Well appearing. NAD. Not Cushingoid or Acromegalic Neck/Thyroid: Thyroid not palpable, no nodules. CV: RRR, no murmur. No edema. Resp:Lungs clear to auscultation bilaterally Abdomen: Soft, nontender. nondistended Extremities/Neuro: No weakness or tremor of outstretched hands Laboratory Tests 02/16/25 08:43 BUN 12 Creatinine 0.71 Calcium 9.5 AST 36 H ALT 34 H 25-OH Vitamin D Total 45.4 TSH 2.50 Imaging DEXA 01/31/2025 FINDINGS: The bone mineral density of the lumbar spine is 0.741 g/cm2, corresponding to a T-score of -3.7, and a Z-score of -1.3. This is indicative of osteoporosis. The bone mineral density of the left total hip is 0.527 g/cm2, corresponding to a T-score of -3.8, and a Z-score of -1.9. This is indicative of osteoporosis. The bone mineral density of the left femoral neck is 0.575 g/cm2, corresponding to a T-score of -3.3, and a Z-score of -1.2. This is indicative of osteoporosis. FRACTURE RISK: The FRAX index suggests a risk of major osteoporotic fracture of 11.7%, and of hip fracture 4.6%. IMPRESSION: Based on bone mineral density, and according to World Health Organization (WHO) criteria, the diagnosis is consistent with osteoporosis. [facility] Family History Mother Hypertension Father No problems noted. Social History Housing: House Patient Tobacco Use Status: Never used Tobacco e-Cigarette/Vaping Use: Never Used service: No Current occupational status: employed Physical Exam Vital Signs: Last Vital Signs Pulse 98 03/29/25 13:47 BP 142/80 H 03/29/25 13:47 Pulse Ox 98 03/29/25 13:47 Oxygen Delivery Method Room Air 03/29/25 13:47 BMI result Body Mass Index 19.0 Assessment & Plan Assessment & Plan (1) Osteoporosis: Code(s): M81.0 - Age-related osteoporosis without current pathological fracture Category: Medical Plan: 69 years old female with past medical history of vitamin-D deficiency, referred from primary care for evaluation and management of osteoporosis. She is noted to have severe osteoporosis with T-scores-3.7 and lumbar spine,-3.8 on left total hip,-3.3 on left femoral neck. That is not evident secondary etiology for this severe osteoporosis, most likely this patient had age-related osteoporosis for many years that was not treated. Fortunately she has not had any fragility fractures, but we discussed that she is at higher risk for fragility fractures with this low T-scores. We discussed that given her severe osteoporosis, she will likely required an anabolic medication to build bone. We discussed that osteoporosis medications include bisphosphonates, denosumab, selective estrogen receptor modulators (SERMs), and anabolic agents such as teriparatide, abaloparatide, and romosozumab. Bisphosphonates are often first-line due to their proven efficacy and long-term safety, but can cause gastrointestinal irritation, rare osteonecrosis of the jaw, and atypical femoral fractures. Denosumab, administered subcutaneously every six months, avoids GI side effects and is suitable for patients with renal impairment, but carries risks of hypocalcemia, infections, and a rebound increase in fracture risk if discontinued abruptly. SERMs like raloxifene are mainly used for vertebral fracture prevention and may reduce breast cancer risk, but can worsen vasomotor symptoms and increase thromboembolic risk. Anabolic agents are reserved for patients at highest fracture risk, offering the greatest increases in bone mass, but are limited by cost, daily injections, and potential for hypercalcemia or, in the case of romosozumab, cardiovascular events. She already had BMP, TSH, vitamin-D all within normal range. Given severity osteoporosis, I would like to rule out primary hyperparathyroidism before starting therapy. Plan Obtain 24 hours urine calcium and creatinine, BMP Follow-up in 2 weeks to evaluate results and start treatment promptly Plan 55 minutes spent reviewing previous records, labs, imaging, education and documenting in the chart Orders: Orders Calcium, 24 Hr Ur Today M81.0 - Age-related osteoporosis without current pathological fracture Creatinine, 24 Hr Group Today M81.0 - Age-related osteoporosis without current pathological fracture Comprehensive Met. Panel Today M81.0 - Age-related osteoporosis without current pathological fracture Patient Instructions: Please have blood/urine work up done at [facility] on [address] [place] [address], [address], [address] [place] [address] 24-Hour Urine Calcium Collection Instructions Purpose: This test measures the amount of calcium excreted in your urine over a 24-hour period. It helps evaluate calcium metabolism and diagnose certain conditions. Supplies Needed: 24-hour urine collection container (provided by the lab or clinic) Urine hat or collection device (optional, for easier collection) Written instructions (this sheet) Instructions: Start the Collection: Choose a day when you can be at home or have easy access to a bathroom. Upon waking up on the first day, urinate and discard this first morning urine. Do not collect this sample. Note the exact time?this is your start time. Collect All Urine: For the next 24 hours, collect all urine you pass into the provided container. Each time you urinate, collect it in a clean container and transfer it to the 24-hour collection jug. Store the collection container in a cool place, preferably in a refrigerator or on ice, during the collection period. Finish the Collection: Exactly 24 hours after your start time, urinate one last time and add this urine to the container. This completes the collection. After Collection: Ensure the lid is tightly closed. Label the container with your name, date, and start/end times. Return the container to the laboratory or your physician?s office as soon as possible after completion. Important Tips: Do not miss any urine during the 24-hour period. If you do, the test may need to be repeated. Do not allow toilet paper, stool, or other materials to get into the urine sample. Continue your usual diet unless instructed otherwise. Some tests may require you to avoid certain foods or medications?follow any additional instructions provided by your physician. Coding Level of Care Code New Pt Level 4 (71051) Complex visit Add On G2211 Diagnoses Osteoporosis M81.0
== END 2025-03-29 14:24 | disposition home or self-care (01) ==
LOC: HO.ENCR 13:45
PROVIDERS: PCP Nurse Practitioner Family; Visit Provider Student in an Organized Health Care Education/Training Program
DX: M81.0 Age-related osteoporosis without current pathological fracture (principal)
CPT/HCPCS: 99204

== ENCOUNTER → 2025-03-29 13:44 | Outpatient (BNVA) | payer MEDICAID, SELFPAY | PROVIDERS: PCP Nurse Practitioner Family; Visit Provider Student in an Organized Health Care Education/Training Program | DX: M81.0 Age-related osteoporosis without current pathological fracture (principal) | CPT/HCPCS: 99202 ==

== ENCOUNTER → 2025-04-06 09:42 | Outpatient (BNV) | payer MEDICAID, SELFPAY | PROVIDERS: PCP Nurse Practitioner Family; Referring Provider Nurse Practitioner Family; Visit Provider Internal Medicine Medical Oncology | DX: D72.819 Decreased white blood cell count, unspecified (principal) | CPT/HCPCS: 99204 ==

== ENCOUNTER 2025-04-12 14:37 | Outpatient (AMB) | payer MEDICAID, SELFPAY ==
--- NOTE | 2025-04-12 14:39 | A.OFFVIS_ITS ---
Vital Signs 3 04/12/25 14:40 Height 4 ft 10 in Weight 95 lb 14.417 oz BMI 20.0 BP 112/70 Blood Pressure Location Rt brachial Position Sitting Pulse 90 Pulse Source Pulse Oximeter Pulse Oximetry (%) 98 Oxygen Delivery Method Room Air Intake Visit Reasons: Age-related osteoporosis without current patholog Intake Note: Patient presents today for Osteoporosis follow-up visit: ~24hr Urine Collection: I called the patient on 04/05/2025, and she stated that she did the 24 hr urine collection. I do not see any results. ~Comprehensive Met. Panel: Not completed ~Date of last Bone Density Screening: Completed on 01/31/2025 Program Support Clerk Required: No Accompanied by: Self / Same As Patient Allergies No Known Allergies Allergy (Verified 04/12/25 14:49) HPI Comments Details: Osteoporosis Initial Evaluation Reason for visit: Osteoporosis / Low bone density / Fragility fracture evaluation HPI 69 yo female with PMH prior history vitamin D deficiency, seen in the office for evaluation and management of osteoporosis. No previous knowledge of diagnosis of osteoporosis. LMP: 2o years ago History of fragility fractures no Symptoms: reports bone pain, mild height loss, no spinal deformity (kyphosis), no back pain, no wrist/hip pain after minor trauma Risk factors: family history: no low body weight: yes glucocorticoid use: no known smoking: no alcohol: no low Ca/Vit D: takes calcium supplement. No milk, no cheese. Eats leafy green veggies 3x/week. Overall insufficient amount of dietary calcium. Takes vitamin D. fall risk: no No dental implants or extractions scheduled or recent No history of kidney stones Meds (steroids, hormones, immunotherapy, antipsychotics, ppi, lithium): No Interval history: Patient reports feeling overall well She denies any fall or fracture She did complete her blood and urine tests prior to this visit Physical exam: General: Well appearing. NAD. Neck/Thyroid: Thyroid not palpable, no nodules. CV: RRR, no murmur. No edema. Resp:Lungs clear to auscultation bilaterally Abdomen: Soft, nontender. nondistended Extremities/Neuro: No weakness or tremor of outstretched hands Labs Laboratory Tests 02/16/25 08:43 BUN 12 Creatinine 0.71 Calcium 9.5 AST 36 H ALT 34 H 25-OH Vitamin D Total 45.4 TSH 2.50 Imaging DEXA 01/31/2025 FINDINGS: The bone mineral density of the lumbar spine is 0.741 g/cm2, corresponding to a T-score of -3.7, and a Z-score of -1.3. This is indicative of osteoporosis. The bone mineral density of the left total hip is 0.527 g/cm2, corresponding to a T-score of -3.8, and a Z-score of -1.9. This is indicative of osteoporosis. The bone mineral density of the left femoral neck is 0.575 g/cm2, corresponding to a T-score of -3.3, and a Z-score of -1.2. This is indicative of osteoporosis. FRACTURE RISK: The FRAX index suggests a risk of major osteoporotic fracture of 11.7%, and of hip fracture 4.6%. IMPRESSION: Based on bone mineral density, and according to World Health Organization (WHO) criteria, the diagnosis is consistent with osteoporosis. [facility] History No pertinent past surgical history Family History Mother Hypertension Father No problems noted. Social History Household Members: Family Housing: House Patient Tobacco Use Status: Never used Tobacco e-Cigarette/Vaping Use: Never Used service: No Current occupational status: retired Physical Exam Vital Signs: Last Vital Signs Pulse 90 04/12/25 14:40 BP 112/70 04/12/25 14:40 Pulse Ox 98 04/12/25 14:40 Oxygen Delivery Method Room Air 04/12/25 14:40 BMI result Body Mass Index 20.0 Assessment & Plan Assessment & Plan (1) Osteoporosis: Code(s): M81.0 - Age-related osteoporosis without current pathological fracture Category: Medical Qualifiers: Osteoporosis type: age-related Presence of current pathological fracture: without current pathological fracture Qualified Code(s): M81.0 - Age- related osteoporosis without current pathological fracture Plan: 69 years old female with past medical history of vitamin-D deficiency, referred from primary care for evaluation and management of osteoporosis. She is noted to have severe osteoporosis with T-scores-3.7 and lumbar spine,-3.8 on left total hip,-3.3 on left femoral neck. That is not evident secondary etiology for this severe osteoporosis, most likely this patient had age-related osteoporosis for many years that was not treated. Fortunately she has not had any fragility fractures, but we discussed that she is at higher risk for fragility fractures with this low T-scores. We discussed that given her severe osteoporosis, she will likely required an anabolic medication to build bone. We discussed that osteoporosis medications include bisphosphonates, denosumab, selective estrogen receptor modulators (SERMs), and anabolic agents such as teriparatide, abaloparatide, and romosozumab. Bisphosphonates are often first- line due to their proven efficacy and long-term safety, but can cause gastrointestinal irritation, rare osteonecrosis of the jaw, and atypical femoral fractures. Denosumab, administered subcutaneously every six months, avoids GI side effects and is suitable for patients with renal impairment, but carries risks of hypocalcemia, infections, and a rebound increase in fracture risk if discontinued abruptly. SERMs like raloxifene are mainly used for vertebral fracture prevention and may reduce breast cancer risk, but can worsen vasomotor symptoms and increase thromboembolic risk. Anabolic agents are reserved for patients at highest fracture risk, offering the greatest increases in bone mass, but are limited by cost, daily injections, and potential for hypercalcemia or, in the case of romosozumab, cardiovascular events. She already had BMP, TSH, vitamin-D all within normal range. Given severity osteoporosis, I would like to rule out primary hyperparathyroidism before starting therapy. She completed blood work and urine tests, but unfortunately, the urine collection was incomplete, also PTH was not collected, hence we will reorder the labs again. Plan Obtain 24 hours urine calcium and creatinine, BMP, PTH Advise to take vitamin D 1000 IU daily Advise to take Calcium [id number] mg daily, preferably from food sources Encouraged to perform weight bearing exercises as tolerated Follow-up in 4 weeks to evaluate results and start treatment promptly Plan 25 minutes spent reviewing previous records, labs, imaging, education and documenting in the chart Orders: Orders 2 Parathyroid Hormone Intact Today M81.0 - Age-related osteoporosis without current pathological fracture Medications: New 2 [id number] (Evenity) 210 mg (2.34 mL) subcut QMONTH 28.08 mL 0RF 12 months Coding Level of Care Code Est Pt Level 3 (20051) Add On Problem Visit Only Diagnoses Age-related osteoporosis without current pathological fracture M81.0 Osteoporosis type: age-related Presence of current pathological fracture: without current pathological fracture
[2025-04-12 14:40] VITALS: BP 112/70; PULSE 90; O2SAT 98
== END 2025-04-12 15:25 | disposition home or self-care (01) ==
LOC: HO.ENCR 14:38
PROVIDERS: PCP Nurse Practitioner Family; Visit Provider Student in an Organized Health Care Education/Training Program
DX: M81.0 Age-related osteoporosis without current pathological fracture (principal)
CPT/HCPCS: 99213

== ENCOUNTER 2025-04-12 14:37 | Outpatient (REF) | payer MEDICAID, SELFPAY ==
[2025-04-12 17:25] LABS: Alanine Aminotransferase 26 U/L (0-31); Albumin Level 4.3 g/dL (3.5-5.0); Alkaline Phosphatase 84 U/L (39-117); Anion Gap 11 (12-20); Aspartate Amino Transferase 32 U/L (5-31); Blood Urea Nitrogen 23 mg/dL (9-16); Calcium 9.2 mg/dL (8.4-10.2); Carbon Dioxide 29 mmol/L (22-29); Chloride 103 mmol/L (96-108); Estimated Glomerular Filt Rate > 60; Potassium 4.0 mmol/L (3.3-5.1); Sodium 139 mmol/L (135-145); Total Protein 7.0 g/dL (6.5-8.0)
[2025-04-12 17:32] LABS: Parathyroid Hormone Intact 55.0 pg/mL (8.7-77.1)
== END 2025-04-12 14:38 | disposition home or self-care (01) ==
LOC: HO.LAB 14:37
PROVIDERS: PCP Nurse Practitioner Family; Visit Provider Student in an Organized Health Care Education/Training Program
DX: M81.0 Age-related osteoporosis without current pathological fracture (principal); Z79.899 Other long term (current) drug therapy
CPT/HCPCS: 36415; 80053; 83970; 99212